=== PATIENT | female | born 1950 | race Caucasian/White ===

== ENCOUNTER 2017-02-24 07:00 | Inpatient (IN) | payer OTHER ==
[~2017-02-24] VITALS: Ht 152.4 cm; Wt 55.8 kg
== END 2017-03-06 13:07 | disposition home or self-care (01) | DRG 735 ==
LOC: SURH 03-04 05:20 → O/R 03-04 05:20 → OB/GYN 03-04 09:45 → SURH 03-04 16:56
PROVIDERS: Obstetrics & Gynecology Gynecologic Oncology
PROC: 07TC4ZZ Resection of Pelvis Lymphatic, Percutaneous Endoscopic Approach (ICD-10-PCS; 2017-03-04)
PROC: 0UT24ZZ Resection of Bilateral Ovaries, Percutaneous Endoscopic Approach (ICD-10-PCS; 2017-03-04)
PROC: 0UT74ZZ Resection of Bilateral Fallopian Tubes, Percutaneous Endoscopic Approach (ICD-10-PCS; 2017-03-04)
PROC: 0UT94ZZ Resection of Uterus, Percutaneous Endoscopic Approach (ICD-10-PCS; principal; 2017-03-04 16:30)
DX: C53.0 Malignant neoplasm of endocervix (principal)